=== PATIENT | female | born 1935 | race Caucasian/White ===

== ENCOUNTER 2019-07-19 05:42 | Emergency (ER) | payer OTHER, SELFPAY ==
--- NOTE | ~2019-07-19 | CT_ITS ---
EXAMINATION: CT brain wo con DATE: 07/19/2019 05:59 INDICATION: Head injury. TECHNIQUE: Computed tomography (CT) of the head was performed without intravenous contrast. The mA wa s adjusted according to patient size. Iterative reconstruction technique was employed. The dose-lengt h product was 605.33 mGy-cm. COMPARISON: None FINDINGS: There is diffuse brain volume loss. There are scattered areas of low attenuation in the cer ebral white matter, which is within normal limits for the patient's age. There is no intracranial hem orrhage, acute infarction, or abnormal intracranial mass lesion. The ventricles are normal in size. T here is mild mucosal thickening in the ethmoid sinuses. The orbits are normal. The mastoid air cells are normal. IMPRESSION: 1. Normal aging brain. Reviewed, dictated and finalized at location A. IMPRESSION: 1. Normal aging brain.
--- NOTE | ~2019-07-19 | XR_ITS ---
EXAMINATION: XR chest 1V portable DATE: 07/19/2019 06:08 INDICATION: Altered mental status. TECHNIQUE: A single frontal view of the chest was obtained. COMPARISON: Chest 2 views 12/24/2018 FINDINGS: A calcified right lung nodule and calcified right hilar lymph nodes are consistent with old granulomatous disease. No pleural effusion or pneumothorax. A skin fold overlies right hemithorax. T he heart size is normal. IMPRESSION: 1. No acute cardiopulmonary disease. Reviewed, dictated and finalized at location A.
--- NOTE | ~2019-07-19 | CT_ITS ---
EXAMINATION: CT cervical spine wo con DATE: 07/19/2019 05:59 INDICATION: Fall. Frontal head laceration. Head and neck injury. Neck pain. TECHNIQUE: Computed tomography (CT) of the cervical spine was performed without intravenous contrast. Automated exposure control and iterative reconstruction technique were employed. Exam dose: 117.94 mGy-cm total exam DLP. COMPARISON: None FINDINGS: Subtle nondisplaced right occipital condylar fracture. There is moderate degenerative disc disease and mild retrolisthesis at C3-4. There is severe degenerative disc disease and mild retrolisthesis at C5-6. There is moderately prominent degenerative disc disease at C6-7. There is mild anterolisthesis at C7-T1. There is degenerative change at the apophyseal joints throughout the cervical spine. Uncovertebral joint spurring is noted in particular at C3-4, C5-6 and C6-7. No fracture or dislocation or locked facet or prevertebral soft tissue swelling.. IMPRESSION: Extensive degenerative changes of the cervical spine Subtle nondisplaced right occipital condylar fracture Reviewed, dictated and finalized at Location A. Reviewed, dictated and finalized at location A.
--- NOTE | ~2019-07-19 | XR_ITS ---
EXAMINATION: XR pelvis 1-2V DATE: 07/19/2019 06:08 INDICATION: Pelvis injury. TECHNIQUE: An anteroposterior view of the pelvis was obtained. COMPARISON: None. FINDINGS: There is lumbar levocurvature and at least moderate lumbar spondylosis. No fracture. There is mild left hip osteoarthritis. Surgical clips overlie right pelvis. IMPRESSION: 1. No fracture. Reviewed, dictated and finalized at location A. IMPRESSION: 1. No fracture.
[2019-07-19 05:39] VITALS: BP 129/64; PULSE 62; RESP 16; TEMP 36.3; O2SAT 100
--- NOTE | 2019-07-19 06:01 | ED.HEATRA ---
HPI - Head Injury General Chief complaint: Head Injury Stated complaint: head lac Source: RN notes reviewed History of Present Illness HPI Narrative: Patient presents emergency department from [facility] via EMS for fall patient currently resides in a memory care center staff states they heard the patient get up and then fall in her room came to the room found patient on the ground laceration over the left eyebrow. Patient is unable to give a detailed history of fall patient is at baseline per staff at [facility] patient notes pain to the head she denies pain in any joints chest or abdomen Related Data Allergies Allergy/AdvReac Type Severity Reaction Status Date / Time tetracycline Allergy Unknown Verified 01/28/11 08:17 Review of Systems Review of Systems: Narrative: Gen.: Denies fevers or chills Eyes: Denies eye pain ENT: See HPI Respiratory: Denies shortness of breath CV: Denies chest pain GI: Denies abdominal pain nausea, emesis Musculoskeletal: Denies back pain or extremity pain Neuro: Denies headache Skin: Laceration of forehead Except as documented, all other systems reviewed and negative [facility] Past Medical History Medical History (Updated 07/19/19 @ 06:44 by Kevin Pruitt DO) Dementia Social History Social History (Updated 07/19/19 @ 06:05 by Kevin Pruitt DO) Smoking status: Never smoker Exam Narrative: Exam Narrative: APPEARANCE: No acute distress, nontoxic, resting in bed EYES: PERRL HEENT: Normocephalic, atraumatic, tender palpation of the left forehead nares patent TMs clear bilaterally 2.5 cm laceration of the left eyebrow with mild venous bleeding no foreign bodies mild swelling around this region RESPIRATORY: No respiratory distress Clear to auscultation bilaterally with no rhonchi wheezing or rales. CARDIOVASCULAR: Regular rate and rhythm without murmurs rubs or gallops. ABDOMINAL: Soft, nontender, nondistended, no rebound or guarding MUSCULOSKELETAl: Moves all extremities. No clubbing, cyanosis or edema. NEURO: Awake and alert x 1. Following commands, speech normal, no focal deficits SKIN:: Warm, dry. No rashes lesions or abrasions PSYCHIATRIC: Normal affect/mood, Course Course Emergency Course: Discussed with son results of CT scan and need for possible transfer request [facility] at this time Discussed with Dr. Irizarry for orthospine at [facility]. Recommends patient transferred to the ER for further evaluation Discussed with Dr. Rodríguez at [facility] excepts transfer at this time Vital Signs Vital signs: Vital Signs Temperature 97.3 F L 07/19/19 05:39 Pulse Rate 62 07/19/19 05:39 Respiratory Rate 16 07/19/19 05:39 Blood Pressure 129/64 07/19/19 05:39 Pulse Oximetry 100 07/19/19 05:39 Temperature 97.3 F L 07/19/19 05:39 Pulse Rate 64 07/19/19 06:41 Respiratory Rate 18 07/19/19 06:41 Blood Pressure 120/77 07/19/19 06:41 Pulse Oximetry 99 07/19/19 06:41 Procedures Laceration Laceration 1: ====== Skin Level ====== ====== Subcutaneous Layer ====== ====== Muscle Layer ====== ====== Tendon Layer ====== Dressing: Verbal consent was obtained prior to the procedure. The wound was cleaned with Betadine and irrigated with copious amounts of normal saline. Lidocaine 1% with epinephrine was used for anesthesia. Wound was explored is no foreign body seen. The wound was then closed with 4 5-0 nylon in simple interrupted fashion. A sterile dressing was applied following the procedure. Patient tolerated the procedure well MDM - Head Injury Imaging Data Radiologist's impression: ITS Impressions Chest X-Ray 07/19/19 06:26 IMPRESSION: 1. No acute cardiopulmonary disease. Pelvis X-Ray 07/19/19 06:26 IMPRESSION: 1. No fracture. CT scan of head read by [facility]ology shows no acute process CT scan cervical spine read by [facility] shows subtle nondisp
--- NOTE | 2019-07-19 06:06 | PC.NURSE ---
this rn called [facility] because [facility] didnt have pt paperwork when they arrived with pt. [facility] staff states they couldn't find paperwork and gave this rn a number for the head nurse to call. [phone] yoli. this rn went over med hx and med list with jean. larson notified.
--- NOTE | 2019-07-19 06:26 | PC.NURSE ---
ccollar placed on pt at this time per verbal order md.
[2019-07-19 06:41] VITALS: BP 120/77; PULSE 64; RESP 18; O2SAT 99
--- NOTE | 2019-07-19 06:49 | PC.NURSE ---
Called [facility] to transport patient to [facility]. ETA [id number], #[id number]
[2019-07-19] MEDS: TETANUS,DIPHTHERIA,AC PERTUSSIS ADULT (0.5 ML) BOOSTRIX IM (07:15)
== END 2019-07-19 07:59 | disposition short-term general hospital (02) ==
PROVIDERS: Emergency Provider Emergency Medicine; PCP Obstetrics & Gynecology Gynecology
DX: S01.112A Laceration without foreign body of left eyelid and periocular area, initial encounter (principal); S02.11GA Other fracture of occiput, right side, initial encounter for closed fracture; F03.90 Unspecified dementia, unspecified severity, without behavioral disturbance, psychotic disturbance, mood disturbance, and anxiety; Z23 Encounter for immunization; W19.XXXA Unspecified fall, initial encounter
CPT/HCPCS: 12011; 70450; 71045; 72125; 72170; 90471; 90715; 99285; L0140

== ENCOUNTER 2019-08-03 20:00 | Emergency (ER) | payer OTHER, SELFPAY ==
--- NOTE | ~2019-08-03 | CT_ITS ---
EXAMINATION: CT cervical spine wo con DATE: 08/03/2019 20:51 INDICATION: Fall with head injury TECHNIQUE: Computed tomography (CT) of the cervical spine was performed without intravenous contrast. Automated exposure control and iterative reconstruction technique were employed. The dose-length pro duct was 115.14 mGy-cm. COMPARISON: 07/19/2019 FINDINGS: Severe osteoarthritis at the atlantoaxial articulation. 2 mm retrolisthesis C3 on C4 and 2 mm anterol isthesis C7 on T1. Vertebral body heights are normal. No fracture. Severe disc height loss at C5-C6. Moderate disc height loss at C3-C4, C6-C7 and T2-T3. Mild disc height loss at C2-C3 and C7-T1. Multil evel disc bulges and disc osteophyte complex is from C3-C4 through C7-T1 resulting in multilevel mild central canal stenosis. There is also multilevel moderate to severe uncovertebral and facet osteoart hritis at several levels in the cervical spinal both the left and right which results in mild to mode rate neural foraminal stenosis at multiple levels most prominent bilaterally at C6-C7. Cervical soft tissues are unremarkable. Visualized airway and apices of the lungs are clear. IMPRESSION: 1. Moderate to severe cervical spondylosis. No acute osseous abnormality. Reviewed, dictated and finalized at location A.
--- NOTE | ~2019-08-03 | CT_ITS ---
EXAMINATION: CT brain wo con DATE: 08/03/2019 20:51 INDICATION: Fall with head injury. TECHNIQUE: Computed tomography (CT) of the head was performed without intravenous contrast. Sagittal and coronal reconstructions were performed. The mA was adjusted according to patient size. Iterative reconstruction technique was employed. The dose-length product was 605.33 mGy-cm. COMPARISON: head CT dated 07/19/2019 FINDINGS: Small left frontal scalp hematoma. No fracture. No acute intracranial hemorrhage, acute infarction or abnormal extra axial fluid collection. There is mild scattered white matter hypoattenuation consiste nt with chronic small vessel ischemic disease. Symmetric prominence of the sulci and ventricles consi stent with moderate to severe age-appropriate diffuse cerebral volume loss. No mass/mass effect. Muco elaine thickening the posterior left ethmoid sinus. The orbits, paranasal sinuses and mastoid air cells are normal. IMPRESSION: 1. No fracture or acute intracranial process. 2. Age-related changes including moderate to severe diffuse volume loss and mild scattered white shaina er hypoattenuation consistent with chronic small vessel ischemic disease. Reviewed, dictated and finalized at location A. IMPRESSION: 1. No fracture or acute intracranial process. 2. Age-related changes including moderate to severe diffuse volume loss and mil d scattered white matter hypoattenuation consistent with chronic small vessel i schemic disease.
--- NOTE | ~2019-08-03 | XR_ITS ---
EXAMINATION: XR hip BI 2V w AP pelvis DATE: 08/03/2019 21:08 INDICATION: Fall TECHNIQUE: Anteroposterior view of the pelvis and anteroposterior and frog-leg lateral views of the l eft hip and anteroposterior and frog-leg lateral views of the right hip and were obtained. COMPARISON: None. FINDINGS: Alignment is normal. No fracture. Mild bilateral hip osteoarthritis. Moderate left and mild right sac roiliac osteoarthritis. Surgical clips in the left hemipelvis. Moderate lower lumbar spondylosis. Sma ll calcific location along the right greater trochanter which could represent either enthesopathic os sification or gluteus medius calcific tendinitis. IMPRESSION: 1. No acute osseous abnormality. Reviewed, dictated and finalized at location A.
--- NOTE | ~2019-08-03 | XR_ITS ---
EXAMINATION: XR chest 2V DATE: 08/03/2019 21:08 INDICATION: Chest injury post fall TECHNIQUE: frontal and lateral views of the chest were obtained. COMPARISON: Chest radiograph dated 07/19/2019 and 12/24/2018 FINDINGS: Skinfold projects over the right upper lung zone. Calcified nodule in the right midlung zone consiste nt with old granulomatous disease. No other airspace opacities, pulmonary edema, pleural effusion or pneumothorax. The cardiomediastinal silhouette is normal. Chronic T5 compression fracture with 40% an terior vertebral body height loss. Surgical clips at the base of the neck. IMPRESSION: 1. No acute cardiopulmonary disease. Reviewed, dictated and finalized at location A.
[2019-08-03 20:00] VITALS: BP 112/59; PULSE 86; RESP 16; TEMP 36.7; O2SAT 98
--- NOTE | 2019-08-03 20:28 | ED.FALL ---
HPI - Fall General Chief Complaint: Fall Stated Complaint: fall Time Seen by Provider: 08/03/19 20:03 Source: patient and EMS Mode of arrival: EMS Limitations: dementia History of Present Illness HPI Narrative: Patient is an 83-year-old female with a history of dementia who presents from care facility for evaluation of a fall. No one witnessed this fall aside from residence in the memory care unit, but per staff, patient may have fell from a counter. Unknown loss of consciousness. Patient with history of right occipital fracture and transfer to tertiary care facility earlier this month. Patient arrives in a cervical collar awake, alert, conversant at baseline. She has a hematoma to the right parietal scalp, no laceration. No new cervical tenderness per patient. Patient is denying any new pain. She is moving all extremities spontaneously. Otherwise history is limited due to the patient's dementia. Related Data Allergies Allergy/AdvReac Type Severity Reaction Status Date / Time tetracycline Allergy Unknown Verified 01/28/11 08:17 Review of Systems Review of Systems: Narrative: Unable to obtain, secondary to history of dementia [facility] Past Medical History Medical History (Updated 08/03/19 @ 22:21 by Josefa Finley MD) Closed occipital fracture Dementia Osteoporosis Social History Social History Smoking status: Never smoker Gender identity (if verbalized by the patient): Female Exam Narrative: Exam Narrative: GENERAL: Awake, alert, conversant, thin, elderly HEAD: Normocephalic, right hematoma, healing ecchymosis to left forehead, healed laceration EYES: PERRLA and EOMI. ENT: Nares clear, no rhinorrhea or epistaxis. Mucous membranes moist. NECK: Supple. Cervical collar in place. CHEST: No respiratory distress, breathing even and non labored HEART: Regular rate, sinus rhythm ABDOMEN:Non distended, non tender EXTREMITIES: Normal range of motion. No edema. Pelvis stable to anterior and lateral compression. No limb length discrepancies. No pain with internal or external rotation bilateral lower extremities. SKIN: Warm, dry, no rash. NEURO:No focal deficits. Alert and oriented x1 Course Vital Signs Vital signs: Vital Signs Temperature 36.7 C 08/03/19 20:00 Pulse Rate 86 08/03/19 20:00 Respiratory Rate 16 08/03/19 20:00 Blood Pressure 112/59 L 08/03/19 20:00 Pulse Oximetry 98 08/03/19 20:00 Temperature 36.7 C 08/03/19 20:00 Pulse Rate 86 08/03/19 20:00 Respiratory Rate 16 08/03/19 20:00 Blood Pressure 112/59 L 08/03/19 20:00 Pulse Oximetry 98 08/03/19 20:00 MDM - Fall MDM Narrative Medical decision making narrative: Patient presenting for evaluation of fall. At the time of assessment, ABCs are intact and vital signs are stable. Patient with cervical collar in place, no reported pain, no new neurological deficits. Patient is mentating at baseline per chart review and EMS report. Laboratory results are reassuring. Very mild hypokalemia which were able to replenish orally. Patient with urinalysis that is likely consistent with a urinary tract infection. Will treat with antibiotics. No new acute intracranial abnormalities, acute new vertebral abnormalities, no sign of pelvis fracture. Patient will be discharged back to facility with antibiotic. Differential Diagnosis Differential diagnosis: Likely fracture of wrist, compression fracture and concussion without loss of consciousness Medical Records Attestation: I reviewed the patient's medical records. Lab Data Attestation: I reviewed the patient's lab results. Result diagrams: 08/03/19 21:20 08/03/19 21:20 Labs: Lab Results 08/03/19 08/03/19 08/03/19 Range/Units 21:20 21:20 21:20 WBC 8.2 (4.5-10.0) K/mm3 RBC 4.89 (4.2-5.4) M/mm3 Hgb 14.3 (12.0-15.0) g/dL Hct 43.7 (37.0-47.0) % MCV 89.4 (80-100) fl MCH 2
[2019-08-03] MEDS: SODIUM CHLORIDE 0.9% IV 500 ML 999 ML IV CONT (21:21)
[2019-08-03 21:27] LABS: Basophils Percent Auto 0.5 % (0.2-1.2); Eosinophils Absolute Auto 0.3 K/mm3 (0-0.3); Eosinophils Percent Auto 3.2 % (0-4.4); Hematocrit 43.7 % (37.0-47.0); Hemoglobin 14.3 g/dL (12.0-15.0); Immature Granulocyte Absolute 0.02 K/mm3 (0.00-0.031); Immature Granulocyte Percent A 0.2 % (0-0.5); Lymphocytes Absolute Auto 1.89 K/mm3 (0.9-3.2); Lymphocytes Percent Auto 23.1 % (18.3-44.2); Mean Corpuscular HGB Conc 32.7 g/dl (32-36); Mean Corpuscular Hemoglobin 29.2 pg (26-34); Mean Corpuscular Volume 89.4 fl (80-100); Mean Platelet Volume 9.1 fl (7.4-10.4); Monocytes Absolute Auto 0.5 K/mm3 (0.1-0.6); Monocytes Percent Auto 5.6 % (2.6-8.5); Neutrophils Absolute Auto 5.5 K/mm3 (1.3-6.7); Neutrophils Percent Auto 67.4 % (45.5-73.1); Platelet Count Result 293 k/mm3 (150-375); Red Blood Count 4.89 M/mm3 (4.2-5.4); Red Cell Distribution Width 13.3 % (11.5-14.5); White Blood Count 8.2 K/mm3 (4.5-10.0)
[2019-08-03 21:37] LABS: Prothrombin Time 12.6 Seconds (11.1-14.7)
[2019-08-03 21:38] LABS: Partial Thromboplastin Time 23.8 SECONDS (22.3-36.8)
[2019-08-03 21:39] LABS: Blood Urea Nitrogen 16 mg/dL (7-17); Calcium 9.3 mg/dL (8.4-10.2); Carbon Dioxide 30 mmol/L (22-30); Chloride 104 mmol/L (98-107); Estimated Glomerular Filt Rate 48; Glucose 113 mg/dL (65-105); Potassium 2.9 mmol/L (3.4-5.0); Sodium 139 mmol/L (137-145)
[2019-08-03 22:09] LABS: Add Urine Microscopic? YES; Appearance Urine Cloudy (Clear); Bacteria Urine Trace /hpf; Bilirubin Urine Negative (Negative); Blood Urine 1+ (Negative); Color Urine Yellow (Yellow); Glucose Urine UA Negative (Negative); Hyaline Casts Urine 20-29 /lpf; Ketones Urine Negative (Negative); Leukocyte Esterase Ur 2+ LEU/UL (Negative); Mucus Urine Heavy /lpf; Nitrate Urine Negative (Negative); Protein Urine 1+ mg/dL (Negative); Squamous Epithelial Cell Urine Many /hpf (Few); WBC Urine 31-50 /hpf
[2019-08-03 22:10] LABS: Specific Grav Ur 1.031 (1.001-1.035)
[2019-08-03] MEDS: POTASSIUM CHLORIDE 20 MEQ PACKET (FOR LIQUID) 40 MEQ PO (23:00)
[2019-08-03 23:17] VITALS: BP 114/63; PULSE 86; RESP 16; O2SAT 97
== END 2019-08-03 23:00 ==
PROVIDERS: Emergency Provider Emergency Medicine; PCP Obstetrics & Gynecology Gynecology
DX: N39.0 Urinary tract infection, site not specified (principal); S00.03XA Contusion of scalp, initial encounter; W19.XXXA Unspecified fall, initial encounter; F03.90 Unspecified dementia, unspecified severity, without behavioral disturbance, psychotic disturbance, mood disturbance, and anxiety
CPT/HCPCS: 36415; 51701; 70450; 71046; 72125; 73521; 80048; 81001; 85025; 85610; 85730; 87086; 96360; 99284; A9270; J7040

== ENCOUNTER 2020-05-23 09:32 | Emergency (ER) | payer OTHER, SELFPAY ==
--- NOTE | ~2020-05-23 | XR_ITS ---
EXAMINATION: XR chest 2V DATE: 05/23/2020 10:34 INDICATION: Syncope and confusion. TECHNIQUE: frontal and lateral views of the chest were obtained. COMPARISON: Chest radiograph dated 08/03/2019 FINDINGS: Unchanged calcified nodules in the right midlung zone along with calcified right hilar lymph nodes co nsistent with old granulomatous disease. Mild streaky bibasilar opacities. No pleural effusion or pne umothorax. The cardiomediastinal silhouette is normal. Cholecystectomy clips in the right upper quadr ant. Additional surgical clips at the bilateral paramedian base of the neck suggesting prior thyroide ctomy. Chronic midthoracic compression fracture, likely T5, with 30% anterior vertebral body height l oss. IMPRESSION: 1. Mild streaky bibasilar opacities and favor atelectasis over pneumonia. Reviewed, dictated and finalized at location B.
--- NOTE | ~2020-05-23 | CT_ITS ---
EXAMINATION: CT brain wo con EXAM DATE: 05/23/2020 10:25 INDICATION: Syncope. Went unresponsive at breakfast. TECHNIQUE: Spiral CT of the head was performed without contrast. Axial, coronal and sagittal images were reviewed. The dose-length product (DLP) for this examination was 605.33 mGy-cm. The exposure w as tailored according to patient size, and iterative reconstruction (ASIR) was used as additional dos e reduction technique. Comparison is made to prior examination from 08/03/2019. FINDINGS: There is no acute intraparenchymal hemorrhage. No evidence of intraparenchymal brain mass lesion. No evidence of acute infarction. Please note that initial head CT has limited sensitivity f or small or acute infarctions. There is mild periventricular and subcortical hypodensity, nonspecific but probably related to small vessel ischemic disease. There is moderate to severe prominence of t he sulci and ventricles related to cerebral atrophy. There is intracranial carotid arteriosclerosis . There are no extra-axial collections. There is no mass effect or midline shift. The orbits are u nremarkable. Soft tissue is unremarkable. The visualized sinuses and mastoid air cells are well aer ated. IMPRESSION: 1. No acute intracranial findings. 2. Chronic age related findings. Reviewed, dictated and finalized at location A.
--- NOTE | 2020-05-23 09:48 | ED.AMS ---
HPI - Altered Mental Status General Chief Complaint: Syncope Stated Complaint: syncope Time Seen by Provider: 05/23/20 09:48 Source: EMS Mode of arrival: EMS Limitations: dementia History of Present Illness HPI narrative: Pt with a history of alzheimer's dementia who presents for evaluation of possible syncopal event. Pt history limited due to dementia. She is awake, alert in room with stable vital signs. Per EMS report, patient had a short period of time this morning at breakfast where she did not respond appropriately before improving on her own. She was back to baseline at breakfast. They wanted her evaluated for the short episode of decreased responsiveness. Related Data Allergies Allergy/AdvReac Type Severity Reaction Status Date / Time tetracycline Allergy Unknown Verified 01/28/11 08:17 Review of Systems Review of Systems: ROS unobtainable: Yes unobtainable due to medical condition PMFSH Past Medical History Medical History Closed occipital fracture Dementia Osteoporosis Social History Social History Smoking status: Never smoker Gender identity (if verbalized by the patient): Female Exam Narrative: Exam Narrative: GENERAL: Awake, alert, conversant, thin, elderly HEAD: Normocephalic, atraumatic. EYES: PERRLA and EOMI. ENT: Nares clear, no rhinorrhea or epistaxis. Mucous membranes dry NECK: Supple. CHEST: No respiratory distress, breathing even and non labored HEART: Regular rate, sinus rhythm ABDOMEN:Scaphoid, Non distended, non tender EXTREMITIES: Normal range of motion. No edema. SKIN: Warm, dry, no rash. NEURO:No focal deficits. Alert and oriented x3 Course Vital Signs Vital signs: Vital Signs Temperature 36.5 C 05/23/20 09:50 Pulse Rate 70 05/23/20 09:50 Respiratory Rate 20 05/23/20 09:50 Blood Pressure 112/69 05/23/20 09:50 Pulse Oximetry 100 05/23/20 09:50 Temperature 36.5 C 05/23/20 09:50 Pulse Rate 70 05/23/20 10:00 Respiratory Rate 20 05/23/20 09:50 Blood Pressure 112/69 05/23/20 09:50 Pulse Oximetry 100 05/23/20 09:50 MDM - Altered Mental Status MDM Narrative Medical decision making narrative: Patient presented for evaluation of possible syncopal event. At the time of assessment, patient is at baseline nonsensical speech, not able to provide any history or clinical details. She is moving all extremities spontaneously. She does not appear to be any pain. Physical exam otherwise reassuring. Laboratory results are at baseline. No sign of infection based on normal white blood cell count. No anemia. Patient with possible UTI, after I confirm with daughter that she is on antibiotics we will prescribe Macrobid. Otherwise, chest x-ray does not favor pneumonia given no leukocytosis, no cough or hypoxemia. Imaging otherwise is reassuring. I updated patient's daughter and in the hospital she will be transported back to facility. Differential Diagnosis Differential diagnosis: Likely dementia, hypoglycemia, hyponatremia and sepsis Medical Records Attestation: I reviewed the patient's medical records. Lab Data Attestation: I reviewed the patient's lab results. Result diagrams: 05/23/20 10:54 05/23/20 10:54 Labs: Lab Results 05/23/20 05/23/20 05/23/20 Range/Units 10:54 10:54 10:54 WBC 6.1 (4.5-10.0) K/mm3 RBC 4.24 (4.2-5.4) M/mm3 Hgb 12.7 (12.0-15.0) g/dL Hct 38.9 (37.0-47.0) % MCV 91.7 (80-100) fl MCH 30.0 (26-34) pg MCHC 32.6 (32-36) g/dl RDW 12.4 (11.5-14.5) % Plt Count 229 (150-375) k/mm3 MPV 8.9 (7.4-10.4) fl Immature Gran % (Auto) 0.3 (0-0.5) % Neut % (Auto) 63.3 (45.5-73.1) % Lymph % (Auto) 25.3 (18.3-44.2) % [place] % (Auto) 6.6 (2.6-8.5) % Eos % (Auto) 3.8 (0-4.4) % Baso % (Auto) 0.7 (0.2-1.2) % Lymph # (Auto) 1.54
[2020-05-23 09:50] VITALS: BP 112/69; PULSE 70; RESP 20; TEMP 36.5; O2SAT 100
[2020-05-23 10:00] VITALS: BP 100/87; PULSE 66; PULSE 70; RESP 16; O2SAT 100
[2020-05-23 10:20] VITALS: BP 114/59; PULSE 64; RESP 16; O2SAT 100
--- NOTE | 2020-05-23 10:58 | ECG_ITS ---
Measurements Intervals [place] Rate: 65 P: TN: 0 QRS: 44 QRSD: 83 T: 73 QT: 424 QTc: 444 Interpretive Statements SINUS OR ECTOPIC ATRIAL RHYTHM LOW QRS VOLTAGE IN PRECORDIAL LEADS BASELINE ARTIFACT- II, III, AVR, AVL, AVF BORDERLINE ECG Electronically Signed On 05-23-2020 11:00:07 CDT by Nguyễn Nichole D.O.
[2020-05-23] MEDS: SODIUM CHLORIDE 0.9% IV 1,000 ML 999 ML IV CONT (11:04)
[2020-05-23 11:16] LABS: Basophils Percent Auto 0.7 % (0.2-1.2); Eosinophils Absolute Auto 0.2 K/mm3 (0-0.3); Eosinophils Percent Auto 3.8 % (0-4.4); Hematocrit 38.9 % (37.0-47.0); Hemoglobin 12.7 g/dL (12.0-15.0); Immature Granulocyte Absolute 0.02 K/mm3 (0.00-0.031); Immature Granulocyte Percent A 0.3 % (0-0.5); Lymphocytes Absolute Auto 1.54 K/mm3 (0.9-3.2); Lymphocytes Percent Auto 25.3 % (18.3-44.2); Mean Corpuscular HGB Conc 32.6 g/dl (32-36); Mean Corpuscular Volume 91.7 fl (80-100); Mean Platelet Volume 8.9 fl (7.4-10.4); Monocytes Absolute Auto 0.4 K/mm3 (0.1-0.6); Monocytes Percent Auto 6.6 % (2.6-8.5); Neutrophils Absolute Auto 3.9 K/mm3 (1.3-6.7); Neutrophils Percent Auto 63.3 % (45.5-73.1); Platelet Count Result 229 k/mm3 (150-375); Red Blood Count 4.24 M/mm3 (4.2-5.4); Red Cell Distribution Width 12.4 % (11.5-14.5); White Blood Count 6.1 K/mm3 (4.5-10.0)
--- NOTE | 2020-05-23 11:20 | PC.NURSE ---
Report given to CHUCK Alicia
[2020-05-23 11:24] LABS: INR 0.9; Prothrombin Time 12.9 Seconds (11.1-14.7)
[2020-05-23 11:25] LABS: Partial Thromboplastin Time 26.8 SECONDS (22.3-36.8)
[2020-05-23 11:26] LABS: Anion Gap 1 mmol/L (8-16); Blood Urea Nitrogen 19 mg/dL (7-17); Carbon Dioxide 32 mmol/L (22-30); Chloride 108 mmol/L (98-107); Estimated CRCL calculation 30 ml/min; Estimated Glomerular Filt Rate 60; Glucose 92 mg/dL (65-105); Potassium 3.9 mmol/L (3.4-5.0); Sodium 141 mmol/L (137-145)
[2020-05-23 12:00] VITALS: BP 112/62; PULSE 69; RESP 18; O2SAT 100
[2020-05-23 12:44] LABS: Add Urine Microscopic? YES; Amorphous Sediment Urine Few; Appearance Urine Clear (Clear); Bacteria Urine 4+ /hpf; Bilirubin Urine Negative (Negative); Blood Urine Negative (Negative); Color Urine Yellow (Yellow); Glucose Urine UA Negative (Negative); Ketones Urine Negative (Negative); Leukocyte Esterase Ur Trace LEU/UL (Negative); Mucus Urine Rare /lpf; Nitrate Urine Negative (Negative); Protein Urine Negative (Negative); Specific Grav Ur 1.009 (1.001-1.035); Squamous Epithelial Cell Urine Occasional /hpf (Few); Urobilinogen Urine Negative mg/dL (<2.0)
[2020-05-23 13:45] VITALS: BP 110/61; PULSE 68; RESP 18; O2SAT 100
== END 2020-05-23 13:47 | disposition home or self-care (01) ==
PROVIDERS: Emergency Provider Emergency Medicine; PCP Family Medicine
DX: N39.0 Urinary tract infection, site not specified (principal); R55 Syncope and collapse; F03.90 Unspecified dementia, unspecified severity, without behavioral disturbance, psychotic disturbance, mood disturbance, and anxiety; M81.0 Age-related osteoporosis without current pathological fracture
CPT/HCPCS: 36415; 51701; 70450; 71046; 80048; 81001; 85025; 85610; 85730; 93005; 96360; 99284; J7030

== ENCOUNTER 2020-06-25 17:30 | Emergency (ER) | payer OTHER, SELFPAY ==
--- NOTE | ~2020-06-25 | CT_ITS ---
EXAMINATION: CT brain wo con DATE: 06/25/2020 17:57 INDICATION: Head injury. Confusion. TECHNIQUE: Computed tomography (CT) of the head was performed without intravenous contrast. The mA wa s adjusted according to patient size. Iterative reconstruction technique was employed. The dose-lengt h product was 605.33 mGy-cm. COMPARISON: Head CT 05/23/2020 FINDINGS: There is diffuse brain volume loss. There are scattered areas of low attenuation in the cer ebral white matter, which is within normal limits for the patient's age. There is no intracranial hem orrhage, acute infarction, or abnormal intracranial mass lesion. The ventricles are normal in size. T here is mild mucosal thickening in the paranasal sinuses. The orbits are normal. The mastoid air cell s are normal. IMPRESSION: 1. Normal aging brain. Reviewed, dictated and finalized at location A. IMPRESSION: 1. Normal aging brain.
--- NOTE | ~2020-06-25 | CT_ITS ---
EXAMINATION: CT cervical spine wo con DATE: 06/25/2020 17:58 INDICATION: Head injury. Neck pain. TECHNIQUE: Computed tomography (CT) of the cervical spine was performed without intravenous contrast. Automated exposure control and iterative reconstruction technique were employed. The dose-length pro duct was 106.15 mGy-cm. COMPARISON: CT cervical spine 08/03/2019 FINDINGS: There are changes of thyroidectomy. There is 2 mm retrolisthesis of C3 on C4 and 2 mm anter olisthesis of C7 on T1. Vertebral body heights are normal. There is severely decreased disc height at C3-C4, C5-C6, and C6-C7. The following disc levels are specifically discussed: C2-C3: There is no uncovertebral joint osteoarthritis. There is no facet joint osteoarthritis. There is no neural foraminal stenosis. There is no central canal stenosis. C3-C4: There is severe bilateral uncovertebral joint osteoarthritis. There is moderate bilateral face t joint osteoarthritis. There is mild bilateral neural foraminal stenosis. There is mild central marilee l stenosis. C4-C5: There is mild bilateral uncovertebral joint osteoarthritis. There is severe right facet joint osteoarthritis. There is mild right neural foraminal stenosis. There is no central canal stenosis. C5-C6: There is ankylosis of the uncovertebral joints with severe hypertrophy. There is mild bilatera l facet joint osteoarthritis. There is moderate bilateral neural foraminal stenosis. There is mild ce ntral canal stenosis. C6-C7: There is severe bilateral uncovertebral joint osteoarthritis. There is moderate bilateral face t joint osteoarthritis. There is mild bilateral neural foraminal stenosis. There is mild central marilee l stenosis. C7-T1: There is no uncovertebral joint osteoarthritis. There is severe bilateral facet joint osteoart hritis. There is mild bilateral neural foraminal stenosis. There is no central canal stenosis. IMPRESSION: 1. No fracture. 2. Severe cervical spondylosis. Reviewed, dictated and finalized at location A.
[2020-06-25 17:30] VITALS: BP 131/89; PULSE 75; RESP 18; TEMP 36.6; O2SAT 96
--- NOTE | 2020-06-25 17:35 | ED.FALL ---
HPI - Fall General Chief Complaint: Fall Stated Complaint: FALL Time Seen by Provider: 06/25/20 17:35 History of Present Illness HPI Narrative: 84 yo female w/ h/o dementia brought in by EMS from assisted living for a fall. She reportedly had a witnessed fall while getting out of a chair today. She is not able to tell us if she has any complaints. She is reportedly oriented x0 and minimally conversant at baseline. History limited by dementia Related Data Home Medications Medication Instructions Recorded Confirmed levothyroxine 75 mcg PO DAILY 06/25/20 06/27/20 quetiapine 25 mg PO DAILY 06/25/20 06/27/20 sertraline 100 mg PO DAILY 06/25/20 06/27/20 acetaminophen 650 mg PO Q6H PRN 06/27/20 06/27/20 senna 17.2 mg PO DAILY 06/28/20 06/28/20 Allergies Allergy/AdvReac Type Severity Reaction Status Date / Time tetracycline Allergy Unknown Unknown Verified 06/25/20 17:37 Review of Systems Review of Systems: ROS unobtainable: Yes unobtainable due to mental status [facility] Past Medical History Medical History Closed occipital fracture Dementia Osteoporosis Family History Family History Other Unknown family medical history Social History Social History Smoking status: Never smoker Alcohol intake: never Substance use: never Gender identity (if verbalized by the patient): Female Spiritual care concerns: No Exam Const: General: no acute distress, alert and confusion Nutritional Appearance: thin HENMT: Head: normal to inspection Mouth: Yes moist mucous membranes Eyes: Pupils: Equal, round and reactive pupils present Neck: Neck: normal visual inspection Chest: Chest palpation & inspection: normal inspection of the chest and no tenderness Resp: Effort & Inspection: normal respiratory effort Auscultation: clear to auscultation bilaterally Cardio: Rate: regular rate Rhythm: regular rhythm GI: GI Palp: Yes Soft to palpation and No Tenderness to palpation present (GI) Back/Spine/Pelvis: Cervical Spine: collar present Other: nontender Skin: Other: scattered bruising to bLE in various stages of healing Neuro: General: moves all extremities and no focal motor deficits Extrem: Other: Grossly normal strength Course Vital Signs Vital signs: Vital Signs Temperature 36.6 C 06/25/20 17:30 Pulse Rate 75 06/25/20 17:30 Respiratory Rate 18 06/25/20 17:30 Blood Pressure 131/89 06/25/20 17:30 Pulse Oximetry 96 06/25/20 17:30 Temperature 36.6 C 06/25/20 17:30 Pulse Rate 80 06/25/20 18:27 Respiratory Rate 20 06/25/20 18:27 Blood Pressure 143/80 H 06/25/20 18:27 Pulse Oximetry 95 06/25/20 18:27 MDM - Fall MDM Narrative Medical decision making narrative: Imaging negative. She appears to be at her baseline with no indication of acute medical illness. I will plan to discharge back to the longterm. Differential Diagnosis Differential diagnosis: Likely other (SAH, SDH, cervical spine injury) Medical Records Attestation: I reviewed the patient's medical records. Imaging Data Radiologist's impression: ITS Impressions Head CT 06/25/20 17:57 IMPRESSION: 1. Normal aging brain. Cervical Spine CT 06/25/20 17:59 IMPRESSION: 1. No fracture. 2. Severe cervical spondylosis. Discharge Plan Discharge Clinical Impression: Closed head injury Patient Disposition: [facility] Condition: Stable Instructions: Head Injury (ED) Prescriptions: No Action quetiapine 25 mg tablet 25 mg PO DAILY RF: 0 sertraline 100 mg tablet 100 mg PO DAILY RF: 0 levothyroxine 75 mcg tablet 75 mcg PO DAILY RF: 0 acetaminophen 650 mg Tablet 650 mg PO Q6H PRN (Reason: Pain) RF: 0 senna 8.6 mg Capsule 17.2 mg PO DAILY RF: 0 Follow-up/Referrals: Ramesh
--- NOTE | 2020-06-25 17:44 | PC.NURSE ---
BED ALARM IN PLACE.
[2020-06-25 18:01] VITALS: BP 143/80; PULSE 80; RESP 20; O2SAT 95
[2020-06-25 18:27] VITALS: BP 143/80; PULSE 80; RESP 20; O2SAT 95
--- NOTE | 2020-06-25 18:27 | PC.NURSE ---
made contact with [facility] to transfer pt back home to [place]. [facility] [phone]
--- NOTE | 2020-06-25 18:52 | PC.NURSE ---
[facility] has arrived
== END 2020-06-25 18:59 ==
LOC: ANHED 18:22
PROVIDERS: Emergency Provider Emergency Medicine; PCP Family Medicine
DX: S09.90XA Unspecified injury of head, initial encounter (principal); F03.90 Unspecified dementia, unspecified severity, without behavioral disturbance, psychotic disturbance, mood disturbance, and anxiety; M81.0 Age-related osteoporosis without current pathological fracture; W07.XXXA Fall from chair, initial encounter; M47.812 Spondylosis without myelopathy or radiculopathy, cervical region
CPT/HCPCS: 70450; 72125; 99284

== ENCOUNTER 2020-06-27 17:30 | Inpatient (IN) | payer OTHER, SELFPAY ==
[2020-06-27] VITALS (7 sets, daily range): BP systolic 123–150; BP diastolic 70–81; PULSE 78–90; RESP 16–18; TEMP 36.3–36.6; O2SAT 93–99; BMI 18.9
--- NOTE | ~2020-06-27 | XR_ITS ---
EXAMINATION: XR hip RT 2V w AP pelvis EXAM DATE: 06/27/2020 18:55 INDICATION: Right hip pain. TECHNIQUE: Right hip frontal, crosstable lateral projections for interpretation. Frontal projection p abel. Comparison is made to prior examination from 08/03/2019. FINDINGS: Acute closed posttraumatic right hip subcapital femoral neck fracture with superior displac ement of the femur. The femoral head is in location. Pelvic ring is intact. Some pelvic surgical clip s. Mild bilateral hip primary osteoarthritis. IMPRESSION: Acute right subcapital femoral neck fracture. Reviewed, dictated and finalized at location A.
--- NOTE | ~2020-06-27 | CT_ITS ---
EXAMINATION: CT brain wo con, CT cervical spine wo con EXAM DATE: 06/27/2020 18:35 INDICATION: Altered mental status, fall. TECHNIQUE: Spiral CT of the head was performed without contrast. Axial, coronal and sagittal images were reviewed. Spiral CT of the cervical spine was performed without contrast. Axial images were rev iewed. Coronal and sagittal reformatted images were also reviewed. The dose-length product (DLP) fo r this examination was 605.33 (accession [id number]), 118.91 (accession [id number]) mGy-cm. The exposure was tailored according to patient size, and iterative reconstruction (ASIR) was used as additional dose reduction technique. Comparison is made to prior examination from 06/25/2020. FINDINGS: HEAD CT: There is no significant interval change. There is no acute intraparenchymal hemorrhage. No evidence of intraparenchymal brain mass lesion. No evidence of acute infarction. There is mild periv entricular and subcortical hypodensity, nonspecific but probably related to small vessel ischemic dis ease. There is moderate prominence of the sulci and ventricles related to cerebral atrophy. There is intracranial carotid arteriosclerosis. There is no mass effect or midline shift. There is no ob structive hydrocephalus suspected. There are no extra-axial collections. There are no acute calvari al fractures. The orbits are unremarkable. Soft tissue is unremarkable. The visualized sinuses and mastoid air cells are well aerated. CERVICAL CT: There is no evidence of acute cervical fracture. The odontoid process is intact. Pre-d ens space is normal. Prevertebral soft tissue is normal. There are no soft tissue abnormalities julee ntified. There is no disc space widening or traumatic vertebral body subluxation suspected. There i s severe loss of the C5-6 disc height, moderate to severe at C3-4. Advanced left-sided facet arthropa thy at C4-5 and C7-T1, less at the other levels. A detailed level by level evaluation of spondylosis can be added as addendum if requested. IMPRESSION: 1. No acute intracranial findings or cervical fracture. 2. Atrophy and microangiopathy. 3. Cervical spondylosis. Reviewed, dictated and finalized at location A. IMPRESSION: 1. No acute intracranial findings or cervical fracture. 2. Atrophy and microangiopathy. 3. Cervical spondylosis.
--- NOTE | ~2020-06-27 | XR_ITS ---
EXAMINATION: XR chest 1V EXAM DATE: 06/27/2020 18:56 INDICATION: Transient alteration of awareness. TECHNIQUE: Frontal and lateral projections of the chest obtained and reviewed. Comparison is made to prior examination from 05/23/2020. FINDINGS: Right upper lobe granuloma, overlying the midlung zone. The lungs are otherwise clear. Th ere are no pleural effusions. The cardiomediastinal silhouette is within normal limits. There is no pneumothorax suspected. There are mild bony degenerative changes. There are cholecystectomy clips. There is no significant interval change. IMPRESSION: No acute cardiopulmonary findings. Reviewed, dictated and finalized at location A.
--- NOTE | 2020-06-27 18:05 | ECG_ITS ---
Measurements Intervals [place] Rate: 78 P: 72 HI: 141 QRS: 44 QRSD: 94 T: 78 QT: 390 QTc: 445 Interpretive Statements SINUS RHYTHM BORDERLINE R WAVE PROGRESSION, ANTERIOR LEADS NONSPECIFIC T-WAVE ABNORMALITY- ANTEROLAT/HIGH LAT LEADS BASELINE ARTIFACT- II, III, AVR, AVL, AVF, V1-V6 BORDERLINE ECG Electronically Signed On 06-27-2020 18:35:10 CDT by Nguyễn Nichole D.O.
--- NOTE | 2020-06-27 18:25 | ED.GENADULT ---
HPI - General Adult General Chief complaint: Unspecified Stated complaint: leg, back pain Time Seen by Provider: 06/27/20 18:05 Source: EMS History of Present Illness HPI narrative: Patient is a 84 y/o female sent from [place] for possible right hip pain. She is unable to describe the nature of pain or how severe her pain is. Her pain seems to be worse with movement. She reportedly fell recently. She has dementia and not able to provide any history. Related Data Home Medications Medication Instructions Recorded Confirmed levothyroxine 75 mcg PO DAILY 06/25/20 06/27/20 quetiapine 25 mg PO DAILY 06/25/20 06/27/20 sertraline 100 mg PO DAILY 06/25/20 06/27/20 acetaminophen 325 mg PO PRN PRN 06/27/20 06/27/20 acetaminophen 650 mg PO Q6H PRN 06/27/20 06/27/20 Allergies Allergy/AdvReac Type Severity Reaction Status Date / Time tetracycline Allergy Unknown Unknown Verified 06/25/20 17:37 Review of Systems Review of Systems: ROS unobtainable: Yes unobtainable due to mental status [facility] Past Medical History Medical History Closed occipital fracture Dementia Osteoporosis Family History Family History (Updated 06/27/20 @ 22:21 by Gretchen Newby RN) Other Unknown family medical history Social History Social History Smoking status: Never smoker Alcohol intake: never Substance use: never Gender identity (if verbalized by the patient): Female Spiritual care concerns: No Exam Const: General: no acute distress and well developed Orientation/consciousness: confusion HENMT: Head: normocephalic Ears: external ears normal General nose exam: Normal external nose present Eyes: General: appearance normal, both eyes and all related structures Conjunctivae: conjunctivae normal Neck: Neck: normal visual inspection and full ROM Chest: Chest palpation & inspection: normal inspection of the chest and no tenderness Resp: Effort & Inspection: normal respiratory effort Auscultation: clear to auscultation bilaterally Cardio: Rate: regular rate Rhythm: regular rhythm GI: GI Palp: No abdominal tenderness and Yes Soft to palpation Skin: General skin exam: normal color and turgor normal Extrem: General: normal to inspection, full ROM and no pedal edema Right lower extremity: hip/thigh Details: abnormal ROM Details: pain with passive ROM during Psych: Appearance: grossly normal Affect: normal affect Course Consultations Consultation #1: Discussed with Dr. Fowler, who recommends admitting to hospitalist and he will consult. Date: 06/27/20 Time: 19:26 Consultation #2: Discussed with Dr. Escobar, who agrees to admit. Date: 06/27/20 Time: 19:50 Vital Signs Vital signs: Vital Signs Temperature 36.6 C 06/27/20 17:33 Pulse Rate 87 06/27/20 17:33 Respiratory Rate 16 06/27/20 17:33 Blood Pressure 139/73 06/27/20 17:33 Pulse Oximetry 96 06/27/20 17:33 Temperature 36.3 C L 06/27/20 21:52 Pulse Rate 81 06/27/20 21:52 Respiratory Rate 16 06/27/20 21:52 Blood Pressure 150/70 H 06/27/20 21:52 Pulse Oximetry 96 06/27/20 21:52 Medical Decision Making Vital Signs Vital Signs: Vital Signs Temperature 36.6 C 06/27/20 17:33 Pulse Rate 87 06/27/20 17:33 Respiratory Rate 16 06/27/20 17:33 Blood Pressure 139/73 06/27/20 17:33 Pulse Oximetry 96 06/27/20 17:33 Temperature 36.3 C L 06/27/20 21:52 Pulse Rate 81 06/27/20 21:52 Respiratory Rate 16 06/27/20 21:52 Blood Pressure 150/70 H 06/27/20 21:52 Pulse Oximetry 96 06/27/20 21:52 Lab Data Result diagrams: 06/27/20 18:52 06/27/20 18:52 Labs: Lab Results 06/27/20 06/27/20 06/27/20 Range/Units 18:52 18:52 18:52 WBC 10.7 H (4.5-10.0) K/mm3 RBC 4.22 (4.2-5.4) M/mm3 Hgb 12.4 (12.0-15.0) g/dL Hct 37.1 (37.0-47.0) % MCV 87.9 (80-100) fl
[2020-06-27 19:00] LABS: Basophils Percent Auto 0.3 % (0.2-1.2); Eosinophils Absolute Auto 0.2 K/mm3 (0-0.3); Eosinophils Percent Auto 2.2 % (0-4.4); Hematocrit 37.1 % (37.0-47.0); Hemoglobin 12.4 g/dL (12.0-15.0); Immature Granulocyte Absolute 0.04 K/mm3 (0.00-0.031); Immature Granulocyte Percent A 0.4 % (0-0.5); Lymphocytes Absolute Auto 1.35 K/mm3 (0.9-3.2); Lymphocytes Percent Auto 12.6 % (18.3-44.2); Mean Corpuscular HGB Conc 33.4 g/dl (32-36); Mean Corpuscular Hemoglobin 29.4 pg (26-34); Mean Corpuscular Volume 87.9 fl (80-100); Mean Platelet Volume 8.9 fl (7.4-10.4); Monocytes Absolute Auto 0.9 K/mm3 (0.1-0.6); Monocytes Percent Auto 8.4 % (2.6-8.5); Neutrophils Absolute Auto 8.1 K/mm3 (1.3-6.7); Neutrophils Percent Auto 76.1 % (45.5-73.1); Platelet Count Result 219 k/mm3 (150-375); Red Blood Count 4.22 M/mm3 (4.2-5.4); Red Cell Distribution Width 12.4 % (11.5-14.5); White Blood Count 10.7 K/mm3 (4.5-10.0)
[2020-06-27 19:15] LABS: Alanine Aminotransferase 17 U/L (4-35); Albumin Level 3.6 g/dL (3.5-5.1); Alkaline Phosphatase 69 U/L (38-126); Anion Gap 6 mmol/L (8-16); Aspartate Amino Transferase 34 U/L (14-36); Bilirubin,Total 0.6 mg/dL (0.2-1.3); Blood Urea Nitrogen 15 mg/dL (7-17); Calcium 8.3 mg/dL (8.4-10.2); Carbon Dioxide 26 mmol/L (22-30); Chloride 107 mmol/L (98-107); Estimated CRCL calculation 44 ml/min; Estimated Glomerular Filt Rate > 60; Glucose 123 mg/dL (65-105); Potassium 3.4 mmol/L (3.4-5.0); Sodium 139 mmol/L (137-145)
[2020-06-27 19:58] LABS: INR 0.9; Prothrombin Time 13.2 Seconds (11.1-14.7)
[2020-06-27 19:59] LABS: Partial Thromboplastin Time 30.9 SECONDS (22.3-36.8)
[2020-06-27 20:28] LABS: Add Urine Microscopic? YES; Appearance Urine Cloudy (Clear); Bacteria Urine Trace /hpf; Bilirubin Urine Negative (Negative); Color Urine Yellow (Yellow); Glucose Urine UA Negative (Negative); Ketones Urine Negative (Negative); Leukocyte Esterase Ur 3+ LEU/UL (Negative); Mucus Urine Moderate /lpf; Nitrate Urine Negative (Negative); Protein Urine 1+ mg/dL (Negative); Specific Grav Ur 1.025 (1.001-1.035); Squamous Epithelial Cell Urine Many /hpf (Few); Transitional Epi Cells Urine Rare /hpf (None Seen); WBC Urine >75 /hpf
[2020-06-27 20:30] LABS: Blood Urine Negative (Negative)
--- NOTE | 2020-06-27 22:22 | ADMGEN ---
This patient, Tammy Avila, was admitted to Medical Room 347-. Patient/family oriented to hospital policies and general routines including ID bracelet, bed and alarms, visiting hours, pain management, procedures, bathroom and other care routines, personal items, smoking policy, room service/diet, and visiting hours. Information on how to activate the Rapid Response Team has been discussed. Patient/Family are encouraged to report perceived risks to care and to ask questions if they do not understand what they are told or what they should do.
--- NOTE | 2020-06-27 22:51 | PM.IMHP ---
H&P: HPI History of Present Illness Date/Time: 06/27/20 22:51 Chief Complaint: GAIT DISTURBANCE Narrative: THIS IS AN 84-YEAR-OLD FEMALE THAT RESIDES AT [facility] FACILITY THE PATIENT HAS ADVANCED DEMENTIA HAS NOT BEEN ABLE TO PROVIDE ANY HISTORY UPON REVIEWING HIS EMERGENCY ROOM RECURS I HAVE FOUND THE PATIENT APPARENTLY HAD A FALL RECENTLY AND HAS NOT BEEN WALKING THE RIGHT WAY HENCE SHE WAS BROUGHT TO THE EMERGENCY ROOM PRELIMINARY WORKUP WAS SIGNIFICANT FOR A RIGHT SUBCAPITAL FEMORAL FRACTURE. AT THE TIME OF MY VISIT PATIENT WAS NOT ABLE TO PROVIDE ANY HISTORY. Review of Systems Review of Systems: ROS unobtainable: Yes unobtainable due to mental status Neurologic: Reports confusion Psychiatric: Psychiatric: Reports confusion [facility] Past Medical History Medical History Closed occipital fracture Dementia Osteoporosis Family History Family History (Updated 06/27/20 @ 22:21 by Gretchen Newby RN) Other Unknown family medical history Social History Social History Smoking status: Never smoker Alcohol intake: never Substance use: never Gender identity (if verbalized by the patient): Female Spiritual care concerns: No Meds Home Medications and Allergies Home Medications Medication Instructions Recorded Confirmed Type levothyroxine 75 mcg PO DAILY 06/25/20 06/27/20 History quetiapine 25 mg PO DAILY 06/25/20 06/27/20 History sertraline 100 mg PO DAILY 06/25/20 06/27/20 History acetaminophen 325 mg PO PRN PRN 06/27/20 06/27/20 History acetaminophen 650 mg PO Q6H PRN 06/27/20 06/27/20 History Allergies Allergy/AdvReac Type Severity Reaction Status Date / Time tetracycline Allergy Unknown Unknown Verified 06/25/20 17:37 Vital Signs Vital Signs - 24 hr 06/27/20 17:33 06/27/20 18:07 06/27/20 18:08 Temperature 97.9 F Pulse Rate 87 85 Respiratory Rate 16 18 Blood Pressure 139/73 133/81 133/81 Pulse Oximetry 96 94 94 06/27/20 18:15 06/27/20 18:46 06/27/20 21:39 Temperature Pulse Rate 90 78 Respiratory Rate 18 18 Blood Pressure 128/77 123/78 Pulse Oximetry 93 94 99 06/27/20 21:52 Temperature 97.3 F L Pulse Rate 81 Respiratory Rate 16 Blood Pressure 150/70 H Pulse Oximetry 96 Exam Const: General: no acute distress, well developed and confusion Orientation/consciousness: confusion HENMT: Head: normocephalic Ears: external ears normal General nose exam: Normal external nose present Eyes: General: appearance normal, both eyes and all related structures Conjunctivae: conjunctivae normal Neck: Neck: normal visual inspection and full ROM Chest: Chest palpation & inspection: normal inspection of the chest and no tenderness Resp: Effort & Inspection: normal respiratory effort Auscultation: clear to auscultation bilaterally Cardio: Rate: regular rate Rhythm: regular rhythm Skin: General skin exam: normal color and turgor normal Neuro: General: confusion Extrem: General: normal to inspection, full ROM and no pedal edema Right lower extremity: hip/thigh Details: abnormal ROM Details: pain with passive ROM during Psych: Appearance: grossly normal Mental Status: mental status grossly normal Affect: normal affect H&P: Results Labs Labs: Short CBC 06/27/20 Range/Units 18:52 WBC 10.7 H (4.5-10.0) K/mm3 Hgb 12.4 (12.0-15.0) g/dL Hct 37.1 (37.0-47.0) % Plt Count 219 (150-375) k/mm3 BMP 06/27/20 18:52 Sodium 139 Potassium 3.4 Chloride 107 Carbon Dioxide 26 BUN 15 Creatinine 0.60 L Glucose 123 H Calcium 8.3 L Liver Function 06/27/20 Range/Units 18:52 Total Bilirubin 0.6 (0.2-1.3) mg/dL AST 34 (14-36) U/L ALT 17 (4-35) U/L Alkaline Phosphatase 69 (38-126) U/L Albumin 3.6 (3.5-5.1) g/dL Urine 06/27/20 Range/Units 20:11 Urine Color Yellow (Yellow) Urine Appearance
[2020-06-27] MEDS: DEXTROSE 5%/LACTATED RINGERS 1,000 ML 65 ML IV CONT (23:18)
[2020-06-28 04:21] VITALS: BP 143/67; PULSE 86; RESP 18; TEMP 36.6; O2SAT 97
[2020-06-28] MEDS: LEVOTHYROXINE SODIUM 75 MCG TABLET PO (05:42)
[2020-06-28] MEDS: QUEtiapine FUMARATE 25 MG TABLET PO (08:34)
[2020-06-28] MEDS: SERTRALINE HCL 50 MG TABLET 100 MG PO (08:34)
[2020-06-28 09:35] LABS: Hematocrit 36.8 % (37.0-47.0); Hemoglobin 12.3 g/dL (12.0-15.0); Mean Corpuscular HGB Conc 33.4 g/dl (32-36); Mean Corpuscular Hemoglobin 29.9 pg (26-34); Mean Corpuscular Volume 89.3 fl (80-100); Platelet Count Result 217 k/mm3 (150-375); Red Blood Count 4.12 M/mm3 (4.2-5.4); Red Cell Distribution Width 12.3 % (11.5-14.5); White Blood Count 8.3 K/mm3 (4.5-10.0)
[2020-06-28 09:50] LABS: Anion Gap 3 mmol/L (8-16); Blood Urea Nitrogen 12 mg/dL (7-17); Calcium 8.1 mg/dL (8.4-10.2); Carbon Dioxide 28 mmol/L (22-30); Chloride 107 mmol/L (98-107); Estimated CRCL calculation 49 ml/min; Estimated Glomerular Filt Rate > 60; Glucose 115 mg/dL (65-105); Potassium 3.1 mmol/L (3.4-5.0); Sodium 138 mmol/L (137-145)
--- NOTE | 2020-06-28 12:07 | PM.CNOR ---
Assessment and Plan Assessment and plan (1) Closed displaced fracture of right femoral neck: Code(s): S72.001A - Fracture of unspecified part of neck of right femur, initial encounter for closed fracture Status: Acute Assessment and Plan: 84-year-old female with advanced dementia and a progressively declining cognitive and medical status over the course of the past year. In discussing with the patient's and daughter it seems like this has been much more rapid in recent months. She is falling more. She really does not get around that well other than getting up with assistance. She is quite contracted which may be secondary to pain however after discussion with daughter who is the power of collections attorney, understanding that the outcome is surely poor, nonsurgical treatment is going to be followed. Even with surgery at this point I do not believe the situation could be improved to any significant degree. Goal will be to try and keep her comfortable and to try and at least get her into a Marlen chair to minimize chance of bedsores, pneumonia, etc. At this juncture, hospice is probably something that should be entertained. Thank you for the consultation. History of Present Illness HPI Consult date: 06/28/20 Consult reason: fracture Chief complaint: right subcapital fracture Narrative: 84-year-old female who is a [place] [facility] resident. She has had many falls in the past several days. Up to five according to her whom I spoke to. Yesterday she was brought to the emergency room and diagnosed with a subcapital left femoral neck fracture. The patient herself is non communicative. The information I got was from the patient's and her daughter who is her power of collections attorney. [facility] Past Medical History Medical History Closed occipital fracture Dementia Osteoporosis Family History Family History Other Unknown family medical history Social History Social History Smoking status: Never smoker Alcohol intake: never Substance use: never Gender identity (if verbalized by the patient): Female Spiritual care concerns: No Meds Home Medications and Allergies Home Medications Medication Instructions Recorded Confirmed Type levothyroxine 75 mcg PO DAILY 06/25/20 06/27/20 History quetiapine 25 mg PO DAILY 06/25/20 06/27/20 History sertraline 100 mg PO DAILY 06/25/20 06/27/20 History acetaminophen 325 mg PO PRN PRN 06/27/20 06/27/20 History acetaminophen 650 mg PO Q6H PRN 06/27/20 06/27/20 History sennosides [senna] 17.2 mg PO DAILY 06/28/20 06/28/20 History Allergies Allergy/AdvReac Type Severity Reaction Status Date / Time tetracycline Allergy Unknown Unknown Verified 06/25/20 17:37 Vital Signs Vital Signs - 24 hr 06/27/20 17:33 06/27/20 18:07 06/27/20 18:08 Temperature 97.9 F Pulse Rate 87 85 Respiratory Rate 16 18 Blood Pressure 139/73 133/81 133/81 Pulse Oximetry 96 94 94 06/27/20 18:15 06/27/20 18:46 06/27/20 21:39 Temperature Pulse Rate 90 78 Respiratory Rate 18 18 Blood Pressure 128/77 123/78 Pulse Oximetry 93 94 99 06/27/20 21:52 06/28/20 04:21 Temperature 97.3 F L 98 F Pulse Rate 81 86 Respiratory Rate 16 18 Blood Pressure 150/70 H 143/67 H Pulse Oximetry 96 97 Exam Const: General: comfortable and no acute distress Nutritional Appearance: thin Extrem: Other: Right lower extremity is contracted with the hip slightly flexed and the right knee hyperflexed. Was unable to straighten out knee to any appreciable degree. Did seem to have a little discomfort with manipulation of the right hip. Unable to truly assess motor and sensory function to her extremities. Cursory exam of the upper extremities and left lower extremity were nonfocal. Radiology Reports: Comments: EXAMINATION: XR hi
--- NOTE | 2020-06-28 13:17 | PM.IMPN ---
Progress Note: A&P Assessment and Plan (1) Closed displaced fracture of right femoral neck: Code(s): S72.001A - Fracture of unspecified part of neck of right femur, initial encounter for closed fracture Status: Acute Assessment and Plan: Secondary to fall on 06/25/2020. Hip/pelvis x-ray showed right subcapital femoral neck fracture. Appreciate orthopedic surgery consultation. Plan for conservative management Weight-bearing, PT/OT per orthopedic surgery recommendations Analgesics available as needed for pain (2) Dementia: Code(s): F03.90 - Unspecified dementia without behavioral disturbance Status: Acute Assessment and Plan: Advanced dementia with progressive cognitive decline worsened over the past few months. Patient is nonverbal and unable to follow commands. Continue sertraline and Seroquel (3) Abnormal urinalysis: Code(s): R82.90 - Unspecified abnormal findings in urine Status: Acute Assessment and Plan: Urinalysis abnormal upon presentation. She is afebrile. Leukocytosis has resolved. Unable to indicated if she is having urinary symptoms. Continue Meneses catheter Begin IV Rocephin while awaiting urine culture results (4) Hypokalemia: Code(s): E87.6 - Hypokalemia Status: Acute Assessment and Plan: Potassium slightly decreased today at 3.1. Administer 40 mEq p.o. KCl Monitor potassium levels closely and supplement as needed (5) Encounter for hospice care discussion: Code(s): Z71.89 - Other specified counseling Status: Acute Assessment and Plan: Given severe dementia, family has requested referral for hospice informational meeting. Care coordination consult appreciated. Hospice referral placed. Subjective Date/time seen: 06/28/20 13:17 Interval history: Date of service: 06/28/2020 Tammy Avila is an 84-year-old female with history of severe dementia and osteoporosis who is seen in follow-up for right hip fracture. She is nonverbal at baseline and not able to provide any history. I spoke with her daughter via phone who says that her cognitive function has been declining for approximately 2 years and worsened over the past few months. She and her family have elected for nonoperative management of her hip fracture. She would like to consider hospice care given overall decline. Review of Systems Review of Systems: ROS unobtainable: Yes unobtainable due to mental status Exam Narrative: Exam Narrative: Ms. Avila is a thin, frail 84 [id number] female who is lying supine in bed. She appears comfortable and is in NARD. Neuro: awake, nonverbal, unable to follow commands HEENMT: normocephalic, atraumatic, EOMI, sclerae anicteric, dry oral mucosa Neck: supple, no lymphadenopathy Respiratory: clear to auscultation anteriorly, nonlabored breathing Cardio: regular rate, regular rhythm with S1-S2 Abdomen: nondistended, normoactive bowel sounds, soft, nontender to palpation, no rigidity or guarding Extremities: lower extremities are contracted and right leg is crossed, right hip nontender to palpation, bilateral lower extremities with no edema, erythema, cyanosis, clubbing, or tenderness to palpation. DP pulses 2+ bilaterally Skin: no rashes or lesions, warm and dry Psych: judgment and insight poor Objective Data Vital Signs Vital Signs: Vital Signs - 24 hr 06/27/20 17:33 06/27/20 18:07 06/27/20 18:08 Temperature 97.9 F Pulse Rate 87 85 Respiratory Rate 16 18 Blood Pressure 139/73 133/81 133/81 Pulse Oximetry 96 94 94 06/27/20 18:15 06/27/20 18:46 06/27/20 21:39 Temperature Pulse Rate 90 78 Respiratory Rate 18 18 Blood Pressure 128/77 123/78 Pulse Oximetry 93 94 99 06/27/20 21:52 06/28/20 04:21 Temperature 97.3 F L 98 F Pulse Rate 81 86 Respiratory Rate 16 18 Blood Pressure 150/70 H 143/67 H Pulse Oximetry 96 97 Intake/Output Intake/Out
[2020-06-28] MEDS: ACETAMINOPHEN 325 MG TABLET 650 MG PO ×2 (13:38→18:00)
[2020-06-28] MEDS: POTASSIUM CHLORIDE 20 MEQ PACKET (FOR LIQUID) 40 MEQ PO (13:38)
[2020-06-28] MEDS: DEXTROSE 5%/LACTATED RINGERS 1,000 ML 65 ML IV CONT (13:38)
[2020-06-28 15:19] VITALS: BP 139/71; PULSE 90; RESP 16; TEMP 36.2; O2SAT 99
--- NOTE | 2020-06-28 16:03 | PCPTNOTE ---
Attempted PT eval at 1400. Awaiting WB status orders from Ortho .
[2020-06-28 22:00] VITALS: BP 154/79; PULSE 84; RESP 17; TEMP 36.7; O2SAT 99
[2020-06-29] MEDS: ACETAMINOPHEN 325 MG TABLET 650 MG PO ×4 (00:14→18:05)
[2020-06-29 04:57] VITALS: BP 125/87; PULSE 78; RESP 14; TEMP 36.6; O2SAT 95
[2020-06-29] MEDS: LEVOTHYROXINE SODIUM 75 MCG TABLET PO (05:57)
[2020-06-29 06:17] LABS: Anion Gap 4 mmol/L (8-16); Blood Urea Nitrogen 11 mg/dL (7-17); Calcium 8.2 mg/dL (8.4-10.2); Carbon Dioxide 29 mmol/L (22-30); Chloride 106 mmol/L (98-107); Estimated CRCL calculation 42 ml/min; Estimated Glomerular Filt Rate > 60; Glucose 92 mg/dL (65-105); Potassium 3.3 mmol/L (3.4-5.0); Sodium 139 mmol/L (137-145)
[2020-06-29] MEDS: polyethylene glycoL 3350 17 GM POWD.PACK PO (08:56)
[2020-06-29] MEDS: ENOXAPARIN 40 MG/0.4 ML SYRINGE SUB-Q (08:56)
[2020-06-29] MEDS: SERTRALINE HCL 50 MG TABLET 100 MG PO (08:57)
[2020-06-29] MEDS: QUEtiapine FUMARATE 25 MG TABLET PO (08:57)
--- NOTE | 2020-06-29 11:10 | PCPTNOTE ---
Attempted PT eval. Pt is going home w/ hospice today. Will DC PT.
[2020-06-29] MEDS: POTASSIUM CHLORIDE 20 MEQ TABLET 40 MEQ PO (12:07)
[2020-06-29 14:00] VITALS: BP 122/69; PULSE 87; RESP 16; TEMP 36.3; O2SAT 100
--- NOTE | 2020-06-29 16:15 | PM.IMPN ---
Progress Note: A&P Assessment and Plan (1) Encounter for hospice care discussion: Code(s): Z71.89 - Other specified counseling Status: Acute Assessment and Plan: Given severe dementia, family requested referral for hospice informational meeting. Family has arranged care with [facility] with plans to discharge to [facility] living on hospice today or tomorrow. (2) Closed displaced fracture of right femoral neck: Code(s): S72.001A - Fracture of unspecified part of neck of right femur, initial encounter for closed fracture Status: Acute Assessment and Plan: Secondary to fall on 06/25/2020. Hip/pelvis x-ray showed right subcapital femoral neck fracture. Appreciate orthopedic surgery consultation. Plan for conservative management with goal of comfort Analgesics available as needed for pain (3) Dementia: Code(s): F03.90 - Unspecified dementia without behavioral disturbance Status: Acute Assessment and Plan: Advanced dementia with progressive cognitive decline worsened over the past few months. Patient is nonverbal and unable to follow commands. Continue sertraline and Seroquel (4) Abnormal urinalysis: Code(s): R82.90 - Unspecified abnormal findings in urine Status: Acute Assessment and Plan: Urinalysis abnormal upon presentation. She is afebrile. Urine culture negative Continue Meneses catheter Discontinue IV antibiotics (5) Hypokalemia: Code(s): E87.6 - Hypokalemia Status: Acute Assessment and Plan: Potassium slightly decreased today at 3.3. Administer oral potassium Monitor potassium levels closely and supplement as needed Subjective Date/time seen: 06/29/20 16:15 Interval history: Date of service: 06/29/2020 Tammy Avila is an 84-year-old female with history of severe dementia and osteoporosis who is seen in follow-up for right hip fracture. She is nonverbal at baseline and not able to provide any history. Review of Systems Review of Systems: ROS unobtainable: Yes unobtainable due to mental status Exam Narrative: Exam Narrative: Ms. Avila is a thin, frail 84 [id number] female who is lying supine in bed in a contracted position. She appears comfortable and is in NARD. Neuro: awake, nonverbal, unable to follow commands HEENMT: normocephalic, atraumatic, EOMI, sclerae anicteric, dry oral mucosa Neck: supple, no lymphadenopathy Respiratory: clear to auscultation anteriorly, nonlabored breathing Cardio: regular rate, regular rhythm with S1-S2 Abdomen: nondistended, normoactive bowel sounds, soft, nontender to palpation, no rigidity or guarding Extremities: lower extremities are contracted, right hip nontender to palpation, bilateral lower extremities with no edema, erythema, cyanosis, clubbing, or tenderness to palpation. DP pulses 2+ bilaterally Skin: no rashes or lesions, warm and dry Psych: judgment and insight poor Objective Data Vital Signs Vital Signs: Vital Signs - 24 hr 06/28/20 22:00 06/29/20 04:57 06/29/20 14:00 Temperature 98.1 F 98 F 97.4 F L Pulse Rate 84 78 87 Respiratory Rate 17 14 16 Blood Pressure 154/79 H 125/87 122/69 Pulse Oximetry 99 95 100 Intake/Output Intake/Output: Intake & Output 06/26/20 06/27/20 06/28/20 06/29/20 23:59 23:59 23:59 23:59 Intake Total 1290 745 Output Total 700 300 Balance 590 445 Meds/Results Medications: Active Medications Generic Name Dose Route Start Last Admin Trade Name Freq PRN Reason Stop Dose Admin Acetaminophen 650 mg 06/28/20 13:00 06/29/20 12:07 Acetaminophen 325 Mg Tablet PO 650 mg Q6H CHARLIE Administration Enoxaparin Sodium 40 mg 06/29/20 09:00 06/29/20 08:56 Enoxaparin 40 Mg/0.4 Ml Syringe SUB-Q 40 mg DAILY CHARLIE Administration Ceftriaxone Sodium/Dextrose 1 gm in 50 mls @ 100 mls/hr 06/28/20 14:00 06/29/20 13:47 Rocephin 1 Gm/D5w 50 Ml IVPB 10
[2020-06-29 19:24] LABS: SARS-CoV-2 RNA PCR Negative
[2020-06-29 20:25] VITALS: O2SAT 95
[2020-06-29 20:42] VITALS: BP 123/63; PULSE 103; RESP 16; TEMP 36.6; O2SAT 95
[2020-06-30] MEDS: ACETAMINOPHEN 325 MG TABLET 650 MG PO ×2 (00:07→06:00)
[2020-06-30] MEDS: LEVOTHYROXINE SODIUM 75 MCG TABLET PO (05:53)
[2020-06-30 06:00] VITALS: BP 118/69; PULSE 88; RESP 16; TEMP 36.2; O2SAT 97
[2020-06-30] MEDS: ENOXAPARIN 40 MG/0.4 ML SYRINGE SUB-Q (08:30)
[2020-06-30] MEDS: QUEtiapine FUMARATE 25 MG TABLET PO (08:30)
[2020-06-30] MEDS: SERTRALINE HCL 50 MG TABLET 100 MG PO (08:30)
[2020-06-30] MEDS: polyethylene glycoL 3350 17 GM POWD.PACK PO (08:31)
--- NOTE | 2020-06-30 10:45 | PM.DS ---
DS: Admitting Diagnosis Admitting Diagnosis Admitting Diagnosis: Right hip fracture DS: Discharge Diagnosis Discharge Diagnosis (1) Encounter for hospice care discussion: Code(s): Z71.89 - Other specified counseling Status: Acute Assessment and Plan: Given severe dementia, family requested referral for hospice informational meeting. Family has arranged care with [facility]. (2) Closed displaced fracture of right femoral neck: Code(s): S72.001A - Fracture of unspecified part of neck of right femur, initial encounter for closed fracture Status: Acute Assessment and Plan: Secondary to fall on 06/25/2020. Hip/pelvis x-ray showed right subcapital femoral neck fracture. She was seen in consultation by Orthopedic surgery. Family did not wish to proceed with surgical management and instead opted for hospice care. (3) Dementia: Code(s): F03.90 - Unspecified dementia without behavioral disturbance Status: Acute Assessment and Plan: Advanced dementia with progressive cognitive decline worsened over the past few months. Patient is nonverbal and unable to follow commands. (4) Abnormal urinalysis: Code(s): R82.90 - Unspecified abnormal findings in urine Status: Acute Assessment and Plan: Urinalysis abnormal upon presentation. She remained afebrile. Urine culture negative. IV antibiotics discontinued. (5) Hypokalemia: Code(s): E87.6 - Hypokalemia Status: Acute Assessment and Plan: Potassium was monitored and replaced. DS: Summary Hospital Course Reason for hospitalization: Right hip fracture Hospital Course: Date of admission: 06/27/2020 Date of discharge: 06/30/2020 Tammy Avila is an 84-year-old female with history of severe dementia and osteoporosis who presented to the emergency department on 06/27/2020 pain after a fall on 06/25/2020 which occurred at her assisted living facility. Upon presentation to the emergency department, her vital signs were stable, CBC and BMP unremarkable, urinalysis was abnormal, CT with no acute findings and no evidence of fracture, CXR no acute cardiopulmonary findings, and hip/pelvis x-ray with acute right subcapital femoral neck fracture. She was admitted to the hospitalist service for further evaluation and management was seen in consultation by Orthopedic surgery. Please see above for further details. Her pain was well controlled. Hospice was arranged with [facility] at [facility]. Further care per hospice. She was discharged in hemodynamically stable condition on 06/30/2020. Status at Discharge Functional status at discharge: bed bound Overall status at discharge: patient is not back to baseline Time Spent with Patient Time attestation: Total time spent providing and/or coordinating discharge services: 45 minutes Time spent: Greater than 30 minutes Exam Narrative: Exam Narrative: Ms. Avila is a thin, frail 84 [id number] female who is lying supine in bed in a contracted position. She appears comfortable and is in NARD. Neuro: awake, speech is garbled and nonsensical, unable to follow commands HEENMT: normocephalic, atraumatic, EOMI, sclerae anicteric, dry oral mucosa Neck: supple, no lymphadenopathy Respiratory: clear to auscultation anteriorly, nonlabored breathing Cardio: regular rate, regular rhythm with S1-S2 Abdomen: nondistended, normoactive bowel sounds, soft, nontender to palpation, no rigidity or guarding Extremities: lower extremities are contracted, right hip nontender to palpation, bilateral lower extremities with no edema, erythema, cyanosis, clubbing, or tenderness to palpation. DP pulses 2+ bilaterally Skin: no rashes or lesions, warm and dry Psych: judgment and insight poor DS: Data Data Completed and Pending Labs on day of discharge: Labs from last 24 hours 06/29/20 00:13 SARS-CoV-2 RNA (RT-PCR)
== END 2020-06-30 12:20 | disposition hospice, home (50) | DRG 536 ==
LOC: ANHED 18:43 → ANH3MED 20:20
PROVIDERS: Admitting Provider Internal Medicine; Emergency Provider Emergency Medicine; PCP Family Medicine; Visit Provider Physician Assistant
DX: S72.011A Unspecified intracapsular fracture of right femur, initial encounter for closed fracture (principal); Z20.822 Contact with and (suspected) exposure to COVID-19; F03.90 Unspecified dementia, unspecified severity, without behavioral disturbance, psychotic disturbance, mood disturbance, and anxiety; R82.90 Unspecified abnormal findings in urine; E87.6 Hypokalemia; M81.0 Age-related osteoporosis without current pathological fracture; W19.XXXA Unspecified fall, initial encounter
CPT/HCPCS: 36415; 70450; 71045; 72125; 73502; 80048; 80053; 81001; 84443; 85025; 85027; 85610; 85730; 87086; 93005; 99285; A9270; C9803; J0696; J1650; J7121; U0003; U0005